=== PATIENT | female | born 1970 | race Caucasian/White ===

== ENCOUNTER 2017-09-26 06:15 | Emergency (ER) | payer OTHER ==
[~2017-09-26] VITALS: Ht 152.4 cm; Wt 61.8 kg
[~2017-09-26 06:15] MED LIST: CARL PO; COL100 PO; ELA25 PO; MYL80 CH; MYLANTA II/MAAL30 M1 PO; OMEPRAZOLE DR20 M1; PROTONIX40 MG/Pac1 PO; TORADOL10 MG
[2017-09-26 07:54] VITALS: BP 126/78
== END 2017-09-26 07:54 | disposition home or self-care (01) ==
LOC: ED 06:15
DX: M54.9 Dorsalgia, unspecified (principal); I10 Essential (primary) hypertension; M79.7 Fibromyalgia; M19.90 Unspecified osteoarthritis, unspecified site; Z88.0 Allergy status to penicillin
CPT/HCPCS: J1885; J3010

== ENCOUNTER 2017-11-19 23:44 | Inpatient (IN) | payer OTHER ==
[~2017-11-19] VITALS: Ht 152.4 cm; Wt 65.0 kg
[2017-11-20 00:51] LABS: BASOPHIL % 0.6 % (0-2); PLATELET COUNT 369 x10^3mcL (130-400)
[2017-11-20 00:57] LABS: CARBON DIOXIDE 29.1 mmol/L (21-32); CHLORIDE SERUM 106 mmol/L (98-107); CREATININE SERUM 0.7 mg/dL (0.6-1.0); GFR1 > 60 mL/min; GLUCOSE SERUM 105 mg/dL (74-106); POTASSIUM SERUM 4.1 mmol/L (3.5-5.1); SODIUM SERUM 144 mmol/L (136-145)
[2017-11-20] MEDS ORDERED: PROZAC10 M2 (02:25)
[2017-11-20] MEDS ORDERED: PREMARIN0.3 MG (02:25)
[2017-11-20 03:52] VITALS: BP 148/84
[2017-11-20 04:04] LABS: microscopic required? NO
[2017-11-20 04:09] LABS: MAGNESIUM 2.4 mg/dL (1.8-2.4); PHOSPHOROUS 3.3 mg/dL (2.5-4.9)
[2017-11-20 04:11] LABS: T3 TOTAL 1.02 ng/mL
[2017-11-20 04:17] LABS: CHOLESTEROL/HDL RATIO 2.7
[2017-11-20 04:18] LABS: FREE T4 1.17 ng/dL (0.76-1.46); FREE THYROXINE INDEX 3.1 ug/dL (1.4-4.5)
[2017-11-20 04:19] LABS: urine erythrocyte NEGATIVE (NEGATIVE)
[2017-11-20 04:29] VITALS: Ht 152.4 cm; Wt 65.0 kg
[2017-11-20 04:34] LABS: AMPHETAMINE QUAL UR NONE DETECTED (NEG <=1000)
[2017-11-20 06:07] VITALS: BP 131/85
[2017-11-20 09:54] VITALS: BP 93/61
[2017-11-20 12:40] VITALS: BP 101/63
[2017-11-20 17:46] VITALS: BP 98/61
[2017-11-20 21:18] VITALS: BP 102/60
[2017-11-21 05:00] VITALS: BP 103/60
[2017-11-21 06:14] LABS: BASOPHIL % 0.3 % (0-2); PLATELET COUNT 349 x10^3mcL (130-400)
[2017-11-21 06:40] LABS: CALCIUM 8.4 mg/dL (8.5-10.1); CARBON DIOXIDE 26.9 mmol/L (21-32); CHLORIDE SERUM 108 mmol/L (98-107); CREATININE SERUM 0.8 mg/dL (0.6-1.0); GFR1 > 60 mL/min; GLUCOSE SERUM 93 mg/dL (74-106); PHOSPHOROUS 3.1 mg/dL (2.5-4.9); POTASSIUM SERUM 4.4 mmol/L (3.5-5.1); SODIUM SERUM 144 mmol/L (136-145)
[2017-11-21 08:45] VITALS: BP 101/60
[2017-11-21] MEDS ORDERED: CYCLOBENZAPRINE5 MG PO (09:56)
[2017-11-21] MEDS ORDERED: LIPI20 PO (09:57)
[2017-11-21] MEDS ORDERED: ECO81 PO (09:58)
[2017-11-21 10:12] VITALS: BP 101/60
== END 2017-11-21 11:15 | disposition home or self-care (01) | DRG 243 ==
LOC: ED 23:44 → DU 11-20 02:51
PROVIDERS: Emergency Medicine; Family Medicine
DX: K21.9 Gastro-esophageal reflux disease without esophagitis (principal); I10 Essential (primary) hypertension; M79.7 Fibromyalgia; M54.12 Radiculopathy, cervical region; Z68.28 Body mass index [BMI] 28.0-28.9, adult; Z88.5 Allergy status to narcotic agent; Z88.0 Allergy status to penicillin; Z90.710 Acquired absence of both cervix and uterus; F32.9 Major depressive disorder, single episode, unspecified; Z82.49 Family history of ischemic heart disease and other diseases of the circulatory system; Z90.49 Acquired absence of other specified parts of digestive tract
CPT/HCPCS: 83880; 84439; J1885; J7030; Q0092

== ENCOUNTER 2018-01-01 04:26 | Emergency (ER) | payer OTHER ==
[~2018-01-01] VITALS: Ht 152.4 cm; Wt 65.4 kg
[~2018-01-01 04:26] MED LIST changes: +CYCLOBENZAPRINE5 MG PO; +ECO81 PO; +LIPI20 PO; +PREMARIN0.3 MG; +PROZAC10 M2
[2018-01-01 04:39] VITALS: Ht 152.4 cm; Wt 65.4 kg
[2018-01-01 06:35] LABS: AMPHETAMINE QUAL UR NONE DETECTED (NEG <=1000)
[2018-01-01 06:36] LABS: CALCIUM 9.4 mg/dL (8.5-10.1); CARBON DIOXIDE 28.4 mmol/L (21-32); CHLORIDE SERUM 101 mmol/L (98-107); CREATININE SERUM 0.8 mg/dL (0.6-1.0); GFR1 > 60 mL/min; GLUCOSE SERUM 95 mg/dL (74-106); POTASSIUM SERUM 3.6 mmol/L (3.5-5.1); SODIUM SERUM 140 mmol/L (136-145)
[2018-01-01 06:49] LABS: ALBUMIN 4.2 g/dL (3.4-5.0); ALKALINE PHOSPHATASE 78 U/L (46-116); ALT/SGPT 38 U/L (14-59); AST/SGOT 16 U/L (15-37); BILIRUBIN TOTAL 0.9 mg/dL (0.20-1.00); FREE T4 1.18 ng/dL (0.76-1.46)
[2018-01-01 06:50] LABS: TOTAL PROTEIN, SERUM 8.9 g/dL (6.4-8.2)
[2018-01-01 06:53] LABS: BASOPHIL % 0.2 % (0-2); PLATELET COUNT 378 x10^3mcL (130-400); RED CELL DISTRIBUTION WIDTH 14.1 % (11.5-14.5)
[2018-01-01 07:39] VITALS: BP 122/80
== END 2018-01-01 07:39 | disposition short-term general hospital (02) ==
LOC: ED 04:26
PROVIDERS: Emergency Medicine
DX: I62.9 Nontraumatic intracranial hemorrhage, unspecified (principal); I10 Essential (primary) hypertension; Z90.49 Acquired absence of other specified parts of digestive tract; Z88.0 Allergy status to penicillin; Z88.5 Allergy status to narcotic agent
CPT/HCPCS: 84439; J2997

== ENCOUNTER 2018-05-05 19:17 | Emergency (ER) | payer OTHER ==
[~2018-05-05] VITALS: Ht 152.4 cm; Wt 68.5 kg
[2018-05-05 19:35] VITALS: Ht 152.4 cm; Wt 68.5 kg
[2018-05-05 21:06] LABS: BASOPHIL % 0.6 % (0-2); PLATELET COUNT 338 x10^3mcL (130-400); RED CELL DISTRIBUTION WIDTH 13.7 % (11.5-14.5)
[2018-05-05 21:16] LABS: CALCIUM 8.8 mg/dL (8.5-10.1); CARBON DIOXIDE 34.1 mmol/L (21-32); CHLORIDE SERUM 105 mmol/L (98-107); CREATININE SERUM 0.9 mg/dL (0.6-1.0); GFR1 > 60 mL/min; GLUCOSE SERUM 96 mg/dL (74-106); POTASSIUM SERUM 4.3 mmol/L (3.5-5.1); SODIUM SERUM 144 mmol/L (136-145)
[2018-05-05 21:20] LABS: ALBUMIN 3.9 g/dL (3.4-5.0); ALKALINE PHOSPHATASE 90 U/L (46-116); ALT/SGPT 35 U/L (14-59); AST/SGOT 19 U/L (15-37); BILIRUBIN TOTAL 0.7 mg/dL (0.20-1.00); LIPASE 146 IU/L (73-393)
[2018-05-06 00:43] VITALS: BP 123/77
== END 2018-05-06 00:43 | disposition home or self-care (01) ==
LOC: ED 19:17
PROVIDERS: Emergency Medicine
DX: I88.0 Nonspecific mesenteric lymphadenitis (principal); I10 Essential (primary) hypertension; F32.9 Major depressive disorder, single episode, unspecified; Z90.710 Acquired absence of both cervix and uterus; Z90.49 Acquired absence of other specified parts of digestive tract
CPT/HCPCS: J0500; J1885; J2405; J3010

== ENCOUNTER 2018-09-29 18:33 | Emergency (ER) | payer OTHER ==
[~2018-09-29] VITALS: Ht 152.4 cm; Wt 71.7 kg
[2018-09-29 18:48] VITALS: Ht 152.4 cm; Wt 71.7 kg
[2018-09-29 21:26] VITALS: BP 117/70
== END 2018-09-29 21:26 | disposition home or self-care (01) ==
LOC: ED 18:33
DX: R51 Headache (principal); R11.0 Nausea; I10 Essential (primary) hypertension; F32.9 Major depressive disorder, single episode, unspecified; M79.7 Fibromyalgia; M06.9 Rheumatoid arthritis, unspecified; Z86.73 Personal history of transient ischemic attack (TIA), and cerebral infarction without residual deficits; Z88.0 Allergy status to penicillin; Z88.5 Allergy status to narcotic agent; Z90.710 Acquired absence of both cervix and uterus
CPT/HCPCS: J0780; J1885

== ENCOUNTER 2018-10-07 10:54 | Inpatient (IN) | payer OTHER ==
[~2018-10-07] VITALS: Ht 152.4 cm; Wt 71.7 kg
[2018-10-07 10:59] VITALS: Ht 152.4 cm; Wt 71.7 kg
[2018-10-07 11:34] LABS: BASOPHIL % 0.4 % (0-2); RED CELL DISTRIBUTION WIDTH 14.1 % (11.5-14.5)
[2018-10-07 11:35] LABS: PLATELET COUNT 482 x10^3mcL (130-400)
[2018-10-07 11:40] LABS: CALCIUM 9.2 mg/dL (8.5-10.1); CHLORIDE SERUM 102 mmol/L (98-107); CREATININE SERUM 0.9 mg/dL (0.6-1.0); GFR1 > 60 mL/min; GLUCOSE SERUM 115 mg/dL (74-106); POTASSIUM SERUM 3.5 mmol/L (3.5-5.1); SODIUM SERUM 139 mmol/L (136-145)
[2018-10-07 11:56] LABS: FREE T4 1.12 ng/dL (0.76-1.46); FREE THYROXINE INDEX 3.3 ug/dL (1.4-4.5); T4(THYROXINE) 9.3 ug/dL (4.7-13.3)
[2018-10-07 12:01] LABS: T3 TOTAL 1.18 ng/mL
[2018-10-07] MEDS ORDERED: ROBAXIN-750750 MG PO (13:20)
[2018-10-07 13:33] LABS: MAGNESIUM 1.9 mg/dL (1.8-2.4); PHOSPHOROUS 2.6 mg/dL (2.5-4.9)
[2018-10-07 13:34] LABS: CHOLESTEROL/HDL RATIO 4.6
[2018-10-07 14:11] VITALS: BP 113/71
[2018-10-07 14:39] LABS: microscopic required? NO
[2018-10-07 14:50] LABS: urine erythrocyte NEGATIVE (NEGATIVE)
[2018-10-07 14:59] LABS: AMPHETAMINE QUAL UR NONE DETECTED (See below)
[2018-10-07 17:36] VITALS: BP 101/61
[2018-10-07 20:58] VITALS: BP 123/58
[2018-10-08 05:52] VITALS: BP 128/59
[2018-10-08 07:01] LABS: CARBON DIOXIDE 25.3 mmol/L (21-32); CHLORIDE SERUM 103 mmol/L (98-107); CREATININE SERUM 0.9 mg/dL (0.6-1.0); GFR1 > 60 mL/min; GLUCOSE SERUM 113 mg/dL (74-106); MAGNESIUM 1.8 mg/dL (1.8-2.4); PHOSPHOROUS 2.4 mg/dL (2.5-4.9); POTASSIUM SERUM 3.9 mmol/L (3.5-5.1); SODIUM SERUM 139 mmol/L (136-145)
[2018-10-08 07:25] LABS: PLATELET COUNT 334 x10^3mcL (130-400); RED CELL DISTRIBUTION WIDTH 13.2 % (11.5-14.5)
[2018-10-08 07:33] LABS: BASOPHIL % 0 % (0-2)
[2018-10-08 10:21] VITALS: BP 101/60
[2018-10-08 13:19] VITALS: BP 113/64
[2018-10-08 14:09] VITALS: BP 113/64
[2018-10-08] MEDS ORDERED: VENTOLIN H0.09 MG/A1 INH (14:27)
[2018-10-08] MEDS ORDERED: LEVAQUIN750 MG PO (14:27)
[2018-10-08] MEDS ORDERED: PREDNISONE20 MG PO (14:27)
== END 2018-10-08 16:02 | disposition home or self-care (01) | DRG 720 ==
LOC: ED 10:54 → DU 12:38
PROVIDERS: Emergency Medicine; Family Medicine
DX: A41.9 Sepsis, unspecified organism (principal); J96.00 Acute respiratory failure, unspecified whether with hypoxia or hypercapnia; E78.5 Hyperlipidemia, unspecified; M94.0 Chondrocostal junction syndrome [Tietze]; I10 Essential (primary) hypertension; R73.03 Prediabetes; J06.9 Acute upper respiratory infection, unspecified; F32.9 Major depressive disorder, single episode, unspecified; M79.7 Fibromyalgia; M06.9 Rheumatoid arthritis, unspecified; M47.892 Other spondylosis, cervical region; Z68.30 Body mass index [BMI] 30.0-30.9, adult; Z87.11 Personal history of peptic ulcer disease; F17.210 Nicotine dependence, cigarettes, uncomplicated; Z88.5 Allergy status to narcotic agent; Z88.0 Allergy status to penicillin; Z86.73 Personal history of transient ischemic attack (TIA), and cerebral infarction without residual deficits; Z90.49 Acquired absence of other specified parts of digestive tract; Z90.710 Acquired absence of both cervix and uterus; K21.9 Gastro-esophageal reflux disease without esophagitis; Z79.82 Long term (current) use of aspirin; Z82.49 Family history of ischemic heart disease and other diseases of the circulatory system; E66.9 Obesity, unspecified; Z71.3 Dietary counseling and surveillance; J40 Bronchitis, not specified as acute or chronic
CPT/HCPCS: 83880; 84439; 85378; 87804; 99406; C9113; J1885; J3010; J7030; J7613; J7644; Q0092

== ENCOUNTER 2019-09-09 21:32 | Emergency (ER) | payer OTHER ==
[~2019-09-09] VITALS: Ht 152.4 cm; Wt 68.0 kg
[~2019-09-09 21:32] MED LIST changes: +LEVAQUIN750 MG PO; +PREDNISONE20 MG PO; +ROBAXIN-750750 MG PO; +VENTOLIN H0.09 MG/A1 INH
[2019-09-09 23:37] LABS: CALCIUM 9.2 mg/dL (8.5-10.1); CARBON DIOXIDE 29.5 mmol/L (21-32); CHLORIDE SERUM 105 mmol/L (98-107); CREATININE SERUM 0.7 mg/dL (0.6-1.0); GFR1 > 60 mL/min; GLUCOSE SERUM 103 mg/dL (74-106); POTASSIUM SERUM 4.1 mmol/L (3.5-5.1); SODIUM SERUM 142 mmol/L (136-145)
[2019-09-09 23:42] LABS: ALBUMIN 4.4 g/dL (3.4-5.0); ALKALINE PHOSPHATASE 89 U/L (46-116); ALT/SGPT 28 U/L (14-59); AST/SGOT 14 U/L (15-37); BILIRUBIN TOTAL 0.49 mg/dL (0.20-1.00)
[2019-09-09 23:43] LABS: TOTAL PROTEIN, SERUM 8.8 g/dL (6.4-8.2)
[2019-09-10 00:24] LABS: BASOPHIL % 0.4 % (0-2); PLATELET COUNT 361 x10^3mcL (130-400); RED CELL DISTRIBUTION WIDTH 14.1 % (11.5-14.5)
[2019-09-10 00:57] VITALS: BP 108/64
== END 2019-09-10 00:57 | disposition home or self-care (01) ==
LOC: ED 21:32
PROVIDERS: Emergency Medicine
DX: G44.209 Tension-type headache, unspecified, not intractable (principal); I10 Essential (primary) hypertension; F32.9 Major depressive disorder, single episode, unspecified; F17.210 Nicotine dependence, cigarettes, uncomplicated; Z90.710 Acquired absence of both cervix and uterus; Z88.5 Allergy status to narcotic agent; Z88.0 Allergy status to penicillin
CPT/HCPCS: J1885; J2765; J7030